=== PATIENT | female | born 2000 | race Two or more races ===

== ENCOUNTER 2023-04-20 16:26 | Outpatient (CLI) | payer OTHER | END 2023-04-20 17:23 | disposition home or self-care (01) | LOC: PRENATAL 16:26 | PROVIDERS: ATTEND Obstetrics & Gynecology Maternal & Fetal Medicine | DX: O35.3XX0 Maternal care for (suspected) damage to fetus from viral disease in mother, not applicable or unspecified (principal); O44.00 Complete placenta previa NOS or without hemorrhage, unspecified trimester; O34.219 Maternal care for unspecified type scar from previous cesarean delivery; Z3A.25 25 weeks gestation of pregnancy ==

== ENCOUNTER 2023-06-02 21:07 | Outpatient (CLI) | payer OTHER ==
[2023-06-02] MEDS ORDERED: IRON236 MG PO (21:59)
== END 2023-06-02 21:39 | disposition left against medical advice (07) ==
LOC: OBS/DEL 21:07 → LDR 21:24 → OBS/DEL 21:39
PROVIDERS: ATTEND Obstetrics & Gynecology Obstetrics
DX: O26.893 Other specified pregnancy related conditions, third trimester (principal); R10.2 Pelvic and perineal pain; Z3A.31 31 weeks gestation of pregnancy; Z88.6 Allergy status to analgesic agent

== ENCOUNTER 2023-06-03 22:39 | Emergency (ER) | payer OTHER ==
[~2023-06-03] VITALS: Ht 162.6 cm; Wt 81.6 kg
[~2023-06-03 22:39] MED LIST: IRON236 MG PO
== END 2023-06-04 00:58 | disposition left against medical advice (07) ==
LOC: ER 22:39
DX: Z53.21 Procedure and treatment not carried out due to patient leaving prior to being seen by health care provider (principal)

== ENCOUNTER 2023-06-08 15:39 | Outpatient (CLI) | payer OTHER ==
[2023-06-08] MEDS ORDERED: IRON325 MG PO (22:34)
[2023-06-08] MEDS ORDERED: INTEGRA CAPSUL1 EACH PO (22:38)
== END 2023-06-08 15:40 | disposition home or self-care (01) ==
LOC: PRENATAL 15:39
PROVIDERS: ATTEND Obstetrics & Gynecology Maternal & Fetal Medicine
DX: O26.849 Uterine size-date discrepancy, unspecified trimester (principal); O36.8199 Decreased fetal movements, unspecified trimester, other fetus; O34.219 Maternal care for unspecified type scar from previous cesarean delivery; O40.1XX0 Polyhydramnios, first trimester, not applicable or unspecified; O99.019 Anemia complicating pregnancy, unspecified trimester; Z3A.32 32 weeks gestation of pregnancy

== ENCOUNTER 2023-06-08 21:59 | Inpatient (IN) | payer OTHER ==
[~2023-06-08] VITALS: Ht 162.6 cm; Wt 81.2 kg
[2023-06-08] MEDS ORDERED: IRON325 MG PO (22:34)
[2023-06-08] MEDS ORDERED: INTEGRA CAPSUL1 EACH PO (22:38)
[2023-06-09 00:16] LABS: PH,URINE 6.5 (5.0-8.0); URINE APPEARANCE Cloudy; URINE BILIRRUBIN Negative (NEGATIVE); URINE BLOOD Negative; URINE COLOR Yellow; URINE GLUCOSE Negative (NEGATIVE); URINE LEUKOCYTE Moderate; URINE NITRATE Positive; URINE PROTEIN Negative (NEGATIVE)
[2023-06-09 00:19] LABS: URINE EPITHELIAL CELLS 6.6 uL (0.0-38.8); URINE WBC 147.7 uL (0.0-23.2)
[2023-06-09 00:21] LABS: URINE BACTERIA > 9821.2 uL (0.0-1933); URINE RBC 0.7 uL (0.0-20.8)
[2023-06-09 00:34] LABS: MEAN CORPUSCULAR HEMOGLOBIN 19.4 pg (27.00-32.0); MEAN CORPUSCULAR HGB CONC 30.2 g/dl (32.0-36.0); PLATELET COUNT 376 K/uL (150-450); RED BLOOD COUNT 3.71 M/uL (4.00-6.00); RED CELL DISTRIBUTION WIDTH 18.9 % (11.5-14.5)
[2023-06-09 00:35] LABS: MEAN CELL VOLUME 64.8 fL (80.00-100.00)
[2023-06-09 00:36] LABS: HEMOGLOBIN 7.2 g/dL (12.0-15.00)
== END 2023-06-12 16:24 | disposition home or self-care (01) | DRG 833 ==
LOC: OBS/DEL 21:59 → LDR 06-09 23:39
PROVIDERS: ADMIT Obstetrics & Gynecology Obstetrics; ATTEND Obstetrics & Gynecology Obstetrics
PROC: 4A1HXCZ Monitoring of Products of Conception, Cardiac Rate, External Approach (ICD-10-PCS; principal; 2023-06-09)
DX: O40.3XX0 Polyhydramnios, third trimester, not applicable or unspecified (principal); Z3A.32 32 weeks gestation of pregnancy; Z20.822 Contact with and (suspected) exposure to COVID-19

== ENCOUNTER 2023-06-13 16:06 | Inpatient (IN) | payer OTHER ==
[~2023-06-13] VITALS: Ht 152.4 cm; Wt 77.1 kg
[~2023-06-13 16:06] MED LIST changes: +INTEGRA CAPSUL1 EACH PO; +IRON325 MG PO
[2023-06-13 17:52] LABS: PH,URINE 7.5 (5.0-8.0); URINE APPEARANCE Clear; URINE BILIRRUBIN Negative (NEGATIVE); URINE BLOOD Negative; URINE COLOR Yellow; URINE GLUCOSE Negative (NEGATIVE); URINE LEUKOCYTE Negative; URINE NITRATE Negative; URINE PROTEIN Negative (NEGATIVE)
[2023-06-13 17:56] LABS: HEMATOCRIT 25.6 % (36.0-45.00); MEAN CORPUSCULAR HGB CONC 30.3 g/dl (32.0-36.0); PLATELET COUNT 395 K/uL (150-450); RED BLOOD COUNT 3.73 M/uL (4.00-6.00); RED CELL DISTRIBUTION WIDTH 19.3 % (11.5-14.5); URINE BACTERIA 32.7 uL (0.0-1933); URINE EPITHELIAL CELLS 30.6 uL (0.0-38.8); URINE WBC 4.4 uL (0.0-23.2)
[2023-06-13 17:58] LABS: URINE RBC 0.7 uL (0.0-20.8)
[2023-06-13 17:59] LABS: HEMOGLOBIN 7.7 g/dL (12.0-15.00); MEAN CELL VOLUME 68.5 fL (80.00-100.00); MEAN CORPUSCULAR HEMOGLOBIN 20.6 pg (27.00-32.0)
== END 2023-06-15 18:47 | disposition home or self-care (01) | DRG 833 ==
LOC: LDR 16:06
PROVIDERS: ADMIT Obstetrics & Gynecology Obstetrics; ATTEND Obstetrics & Gynecology Obstetrics
PROC: 4A1HXCZ Monitoring of Products of Conception, Cardiac Rate, External Approach (ICD-10-PCS; principal; 2023-06-13)
PROC: BY4FZZZ Ultrasonography of Third Trimester, Single Fetus (ICD-10-PCS; 2023-06-13)
DX: O36.8130 Decreased fetal movements, third trimester, not applicable or unspecified (principal); Z3A.33 33 weeks gestation of pregnancy; Z20.822 Contact with and (suspected) exposure to COVID-19; O99.013 Anemia complicating pregnancy, third trimester; D64.9 Anemia, unspecified

== ENCOUNTER 2023-07-06 08:40 | Outpatient (CLI) | payer OTHER | END 2023-07-06 09:03 | disposition home or self-care (01) | LOC: PRENATAL 08:40 | PROVIDERS: ATTEND Obstetrics & Gynecology Maternal & Fetal Medicine | DX: O26.849 Uterine size-date discrepancy, unspecified trimester (principal); O36.8199 Decreased fetal movements, unspecified trimester, other fetus; O34.219 Maternal care for unspecified type scar from previous cesarean delivery; O40.1XX0 Polyhydramnios, first trimester, not applicable or unspecified; O99.019 Anemia complicating pregnancy, unspecified trimester; Z3A.36 36 weeks gestation of pregnancy ==

== ENCOUNTER 2023-07-12 20:25 | Inpatient (IN) | payer OTHER ==
[~2023-07-12] VITALS: Ht 162.6 cm; Wt 81.6 kg
[2023-07-12 21:01] LABS: URINE APPEARANCE Cloudy; URINE BILIRRUBIN Small (NEGATIVE); URINE BLOOD Small; URINE COLOR Dark Yellow; URINE GLUCOSE Negative (NEGATIVE); URINE LEUKOCYTE Moderate; URINE NITRATE Negative
[2023-07-12 21:05] LABS: URINE BACTERIA 2122.9 uL (0.0-1933); URINE EPITHELIAL CELLS 52.2 uL (0.0-38.8); URINE RBC 104.7 uL (0.0-20.8); URINE WBC 219.8 uL (0.0-23.2)
[2023-07-12 21:08] LABS: HEMATOCRIT 32.4 % (36.0-45.00); HEMOGLOBIN 10.2 g/dL (12.0-15.00); MEAN CELL VOLUME 72.8 fL (80.00-100.00); MEAN CORPUSCULAR HEMOGLOBIN 22.9 pg (27.00-32.0); MEAN CORPUSCULAR HGB CONC 31.4 g/dl (32.0-36.0); PLATELET COUNT 287 K/uL (150-450); RED BLOOD COUNT 4.45 M/uL (4.00-6.00)
[2023-07-12 21:18] LABS: PARTIAL THROMBOPLASTIN TIME 28.7 SECONDS (22.0-34.0); PROTHROMBIN TIME 10.5 SECONDS (9.0-11.5)
[2023-07-12 21:19] LABS: URINE PROTEIN 300 (NEGATIVE)
[2023-07-12 21:27] LABS: ALBUMIN 2.7 gm/dL (3.4-5.0); BILIRUBIN TOTAL 0.44 mg/dL (0.3-1.2); CREATININE SERUM 0.47 mg/dL (0.55-1.02); GFR 164.21; POTASSIUM 3.6 mEq/L (3.5-5.1); TOTAL PROTEIN 6.7 gm/dL (6.4-8.2)
== END 2023-07-13 19:22 | disposition home or self-care (01) | DRG 833 ==
LOC: LDR 20:25
PROVIDERS: ADMIT Obstetrics & Gynecology Obstetrics; ATTEND Obstetrics & Gynecology Obstetrics
PROC: 4A1HXCZ Monitoring of Products of Conception, Cardiac Rate, External Approach (ICD-10-PCS; principal; 2023-07-12)
PROC: BY4FZZZ Ultrasonography of Third Trimester, Single Fetus (ICD-10-PCS; 2023-07-12)
DX: O47.03 False labor before 37 completed weeks of gestation, third trimester (principal); Z3A.37 37 weeks gestation of pregnancy; Z20.822 Contact with and (suspected) exposure to COVID-19

== ENCOUNTER 2023-07-20 16:19 | Inpatient (IN) | payer OTHER ==
[~2023-07-20] VITALS: Ht 152.4 cm; Wt 83.9 kg
[2023-07-20] MEDS ORDERED: RINGERS SOLUTION,LACTATED 1,000 ML IV SCH (16:45)
[2023-07-20 17:02] LABS: HEMATOCRIT 32.8 % (36.0-45.00); HEMOGLOBIN 10.5 g/dL (12.0-15.00); MEAN CELL VOLUME 71.7 fL (80.00-100.00); MEAN CORPUSCULAR HEMOGLOBIN 22.9 pg (27.00-32.0); MEAN CORPUSCULAR HGB CONC 31.9 g/dl (32.0-36.0); PLATELET COUNT 307 K/uL (150-450); RED BLOOD COUNT 4.58 M/uL (4.00-6.00); URINE APPEARANCE Turbid; URINE BILIRRUBIN Negative (NEGATIVE); URINE BLOOD Negative; URINE COLOR Yellow; URINE GLUCOSE Negative (NEGATIVE); URINE LEUKOCYTE Large; URINE NITRATE Negative; URINE PROTEIN Negative (NEGATIVE)
[2023-07-20 17:06] LABS: URINE RBC 5.6 uL (0.0-20.8); URINE WBC 708.5 uL (0.0-23.2)
[2023-07-20] MEDS ORDERED: IRON325 MG PO (17:10)
[2023-07-20 17:16] LABS: RED CELL DISTRIBUTION WIDTH 29.3 % (11.5-14.5)
[2023-07-20 17:22] LABS: INR 0.97; PARTIAL THROMBOPLASTIN TIME 27.3 SECONDS (22.0-34.0); PROTHROMBIN TIME 10.2 SECONDS (9.0-11.5); URINE EPITHELIAL CELLS > 201.7 uL (0.0-38.8); URINE MUCUS SCANT
[2023-07-20 17:23] LABS: URINE BACTERIA > 9821.5 uL (0.0-1933)
[2023-07-20 17:53] LABS: ALBUMIN 2.9 gm/dL (3.4-5.0); BILIRUBIN TOTAL 0.41 mg/dL (0.3-1.2); CALCIUM 9.3 mg/dL (8.5-10.1); CREATININE SERUM 0.42 mg/dL (0.55-1.02); GFR 186.97; GLOBULINA 4.1 G/DL (2.4-3.5); POTASSIUM 4.2 mEq/L (3.5-5.1)
[2023-07-20] MEDS ORDERED: OXYTOCIN 10 UNITS/ML VIAL ONE ×2 (19:50)
[2023-07-20] MEDS ORDERED: CEFAZOLIN SODIUM 1,000 MG VIAL ONE (19:50)
[2023-07-20] MEDS ORDERED: ERYTHROMYCIN BASE 3.5 GM OINT...G. OP ONE (19:50)
[2023-07-20] MEDS ORDERED: PROMETHAZINE HCL 25 MG/ML AMPUL IM SCH (21:00)
[2023-07-20] MEDS ORDERED: MEPERIDINE HCL/PF 50 MG/ML VIAL IM PRN (21:00)
[2023-07-20] MEDS ORDERED: CEFAZOLIN SODIUM 1,000 MG VIAL IV ONE (22:15)
[2023-07-20] MEDS ORDERED: OXYTOCIN 10 UNITS/ML VIAL IV ONE (22:15)
[2023-07-20] MEDS ORDERED: ERYTHROMYCIN BASE 1 GM TUBE OP ONE (22:15)
[2023-07-21] MEDS ORDERED: MEPERIDINE HCL/PF 25 MG/ML VIAL IM PRN (06:45)
[2023-07-21] MEDS ORDERED: OxyCODONE HCL/APAP UD (PERCOCET) PO SCH (16:00)
== END 2023-07-23 16:18 | disposition home or self-care (01) | DRG 785 ==
LOC: OB/GYN 16:19 → LDR 16:19 → O/R 20:23 → OB/GYN 21:55
PROVIDERS: ADMIT Obstetrics & Gynecology Obstetrics; ATTEND Obstetrics & Gynecology Obstetrics
PROC: 0UB70ZZ Excision of Bilateral Fallopian Tubes, Open Approach (ICD-10-PCS; 2023-07-20)
PROC: 4A1HXCZ Monitoring of Products of Conception, Cardiac Rate, External Approach (ICD-10-PCS; 2023-07-20)
PROC: 10D00Z1 Extraction of Products of Conception, Low, Open Approach (ICD-10-PCS; principal; 2023-07-20 17:00)
DX: O34.211 Maternal care for low transverse scar from previous cesarean delivery (principal); Z30.2 Encounter for sterilization; Z3A.38 38 weeks gestation of pregnancy; Z37.0 Single live birth; Z20.822 Contact with and (suspected) exposure to COVID-19